=== PATIENT | male | born 1980 | race Hispanic/Latino ===

== ENCOUNTER → 2019-09-25 08:46 | Outpatient (CLI) | payer OTHER, SELFPAY ==
--- NOTE | 2019-09-25 08:48 | DI.MRI.S_ITS ---
PROCEDURE: MR LUMBAR SPINE WO CON INDICATIONS: Persistent and progressive lower back pain with radiculopath TECHNIQUE: Noncontrast sagittal T1 spin echo and T2 fast echo, sagittal STIR, axial T1 and T2 fast spin echo through the lumbar spine. In cases with scoliosis, additional coronal T2 fast spin echo may be performed. COMPARISON: None. FINDINGS: Image quality: Excellent. Alignment and Curvature: There is normal bony alignment. Bone Marrow: Marrow is of normal overall signal. No acute vertebral body compression fractures. Spinal Cord: Conus medullaris terminates at the L1 level. Visualized cord demonstrates normal signal and size. Paraspinous Soft Tissues: No paravertebral masses. T12-L1: Normal appearance. L1-L2: Normal appearance. L2-L3: Normal appearance. L3-L4: Normal appearance. L4-L5: The disc height is well-preserved. Loss of disc signal is seen at this level. Mild to moderate disc bulge is seen. There is a focal annular fissure seen posteriorly. There is moderate right-sided and minimal left-sided neural foraminal narrowing seen. Mild central canal narrowing is seen. L5-S1: The disc height is well-preserved. Loss of disc signal is seen at this level. Moderate disc bulge is seen, with a mild central disc protrusion. Mild facet joint hypertrophy is seen. A there is at least moderate right-sided and moderate to severe left-sided neural foraminal narrowing seen. A degree of compression can be seen on L5 nerve roots, left than right. Moderate central canal narrowing is seen. IMPRESSION: Premature lower lumbar spine degenerative changes seen, including a degree of compression upon the exiting L5 nerve roots. Dictated by: Abilio Siddiqui M.D. on 09/25/2019 at 8:50 Approved by: Abilio Siddiqui M.D. on 09/25/2019 at 8:53
== END ==
PROVIDERS: PCP Family Medicine; Visit Provider Family Medicine
DX: M54.5 Low back pain (principal); M47.26 Other spondylosis with radiculopathy, lumbar region; G89.29 Other chronic pain
CPT/HCPCS: 72148

== ENCOUNTER → 2021-02-06 09:24 | Outpatient (CLI) | payer OTHER, SELFPAY ==
--- NOTE | 2021-02-06 09:25 | DI.RAD.S_ITS ---
PROCEDURE: XR LUMBAR SPINE MIN 4V INDICATIONS: BACK PAIN TECHNIQUE: 5 views of the lumbar spine were acquired, including bilateral oblique views. COMPARISON: None. FINDINGS: Bones: 5 nonrib-bearing vertebrae are present. There is normal bony alignment. No vertebral body compression fractures. Mild degenerative endplate changes are noted at L5-S1 level. No suspicious bony lesions. Soft tissues: Overlying bowel gas pattern is normal. No suspicious soft tissue calcifications. Oblique images: No pars defects. IMPRESSION: Mild degenerative endplate changes seen at L5-S1 level. No compression fracture or spondylolisthesis. No gross pars defects. Dictated by: Lorenzo Lorenzo M.D. on 02/06/2021 at 10:36 Approved by: Lorenzo Lorenzo M.D. on 02/06/2021 at 10:36
== END ==
PROVIDERS: PCP Family Medicine; Referring Provider Physical Medicine & Rehabilitation; Visit Provider Physical Medicine & Rehabilitation
DX: M47.817 Spondylosis without myelopathy or radiculopathy, lumbosacral region (principal); M54.9 Dorsalgia, unspecified; G89.29 Other chronic pain
CPT/HCPCS: 72110

== ENCOUNTER → 2021-02-14 08:22 | Outpatient (CLI) | payer OTHER, SELFPAY ==
[2021-02-14 13:11] LABS: COVID19 -Nasal RAPID Negative (Negative)
== END ==
PROVIDERS: PCP Family Medicine; Visit Provider Physical Medicine & Rehabilitation
DX: Z20.822 Contact with and (suspected) exposure to COVID-19 (principal)
CPT/HCPCS: 87635; C9803

== ENCOUNTER 2021-02-16 15:28 | Outpatient (CLI) | payer OTHER, SELFPAY ==
[2021-02-16] VITALS (8 sets, daily range): BP systolic 122–147; BP diastolic 69–97; PULSE 50–64; RESP 11–18; TEMP 36.8; O2SAT 96–100
[2021-02-16] MEDS: MIDAZOLAM 5 MG/5 ML VIAL IV (16:12)
[2021-02-16] MEDS: fentaNYL 100 MCG/2 ML INJ 50 MCG IV (16:12)
[2021-02-16] MEDS: IOPAMIDOL 15 ML VIAL 3 ML INJ (16:16)
[2021-02-16] MEDS: BUPIVACAINE 0.25% (PF) VIAL 2 ML INJ (16:16)
[2021-02-16] MEDS: DEXAMETHASONE 10 MG/ML VIAL 20 MG INJ (16:17)
[2021-02-16] MEDS: BETAMETHASONE 30 MG/5 ML MDV 6 MG INJ (16:17)
--- NOTE | 2021-02-16 16:27 | P.PCN_ITS ---
Date/Time/Diagnoses Date of procedure: 02/16/21 Time of procedure: 16:27 Pre-procedure diagnosis: 1. HNP WITH RADICULAR FEATURES, 2. MULTILEVEL CENTRAL STENOSIS, Post-procedure diagnosis: same Procedure Notes Procedure: 1. FLUOROSCOPICALLY GUIDED CONTRAST CONTROLLED INTERLAMINAR EPIDURAL STEROID INJECTION - L5/S1 Indications: Raad is referred by Dr. Cameron for treatment of HNP with L>R LE symptoms. Physician: Santana Campos Total Fluoroscopy time (seconds): 7 Total sedation minutes: 11 Complications: none Procedure in detail & Post-procedure care: FINDINGS Multilevel Central Spinal Stenosis with Nerve Root Compression DESCRIPTION OF PROCEDURE Fluoroscopically guided, contrast-controlled L5/S1 translaminar epidural steroid injection. Following review of allergy and review of potential side effects and complications, including, but not necessarily limited to, infection, allergic reaction, local tissue breakdown, temporary as well as permanent nerve injury, paralysis, stroke and possible , the patient indicated that the patient understood and agreed to proceed. An informed consent document was signed by the patient, witnessed by a nurse, and placed in the patient's chart. Additionally, other treatment options including modalities, medications, and physical therapy were reviewed with the patient. After review of previous anaesthesic history and IV conscious sedation the patient was deemed safe to proceed with today?s procedure with IV conscious sedation as ASA class II designation. Safety time-out was performed to confirm patient ID, procedure to be performed and site of procedure. IV sedation was accomplished with a combination of 2mg of Versed and 50mcg of Fentanyl administered by the RN after DO order, titrated to patient comfort during the course of the procedure while the patient remained responsive to all verbal commands. In the prone position, following sterile prep and drape of the lumbar region, the L5/S1 translaminar space was identified fluoroscopically. The skin was anesthetized via a 25-gauge, 1.5-inch needle with 1% lidocaine solution. At this point, a 22-gauge short bevel spinal needle was atraumatically introduced and advanced under fluoroscopic guidance into the region of the L5/S1 translaminar space. Depth was confirmed on lateral view. Radiological data, including multiple fluoroscopic views of the lumbar spine, reveal a spinal needle at the L5/S1 translaminar space. Lateral views then show placement of the needle in the epidural space. Subsequent views show contrast material flowing superiorly and inferiorly in the epidural space. No vascular or intrathecal uptake is observed. At this point, using loss of resistance technique with saline and air, the epidural space was entered. This was confirmed following negative aspiration with injection of approximately 1.5cc of Isovue 200, showing excellent epidural flow without vascular or intrathecal uptake. At this point, 1 cc of 1% l idocaine solution combined with 3cc or 20mg of dexamethasone and 6mg of betamethasone was injected without incident. The patent tolerated the procedure without signs of symptoms of complications pr ior to transfer to the recovery area for further monitoring. The patient was then transferred to the recovery area where they were observed for an appropriate period of time after the injection. The patient reported a VAS score of 6 prior to the procedure and a post-procedure VAS of 0. POST OP INSTRUCTIONS The patient was provided a Pain Log to continue to record their response to the target-specific procedure prior to follow-up visit with their referring physician. Additionally, specific post-injection care instructions and a contact number to our office were provided if concerns arise regarding possible complications associated with the procedure are suspected.
--- NOTE | 2021-02-16 16:36 | DI.RAD.S_ITS ---
PROCEDURE: PAIN L INTERLAMINAR/CAUDAL INJ INDICATIONS: SPONDYLOSIS COMPARISON: [facility], CR, XR LUMBAR SPINE MIN 4V, 02/06/2021, 9:23. FINDINGS: Fluoroscopic spot filming was performed to verify placement of a spinal needle at the L5-S1 level, as labeled on the films. Appropriate location of the needle tip was confirmed by injection of iodinated contrast. IMPRESSION: No significant intraprocedural abnormality. Dictated by: Abilio Siddiqui M.D. on 02/16/2021 at 15:44 Approved by: Abilio Siddiqui M.D. on 02/16/2021 at 15:44
== END 2021-02-16 16:50 | disposition home or self-care (01) ==
PROVIDERS: PCP Family Medicine; Referring Provider Physical Medicine & Rehabilitation; Visit Provider Physical Medicine & Rehabilitation
DX: M51.17 Intervertebral disc disorders with radiculopathy, lumbosacral region (principal); M48.07 Spinal stenosis, lumbosacral region
CPT/HCPCS: 62323; 99152; J0702; J1100; J2250; J3010

== ENCOUNTER → 2021-05-01 08:27 | Outpatient (CLI) | payer OTHER, SELFPAY ==
[2021-05-01 13:01] LABS: COVID19 -Nasal RAPID Negative (Negative)
== END ==
PROVIDERS: PCP Family Medicine; Visit Provider Physical Medicine & Rehabilitation
DX: Z20.822 Contact with and (suspected) exposure to COVID-19 (principal)
CPT/HCPCS: 87635; C9803

== ENCOUNTER 2021-05-02 09:49 | Outpatient (CLI) | payer OTHER, SELFPAY ==
[2021-05-02] VITALS (9 sets, daily range): BP systolic 122–151; BP diastolic 65–104; PULSE 50–72; RESP 8–719; TEMP 36.8; O2SAT 97–100
--- NOTE | 2021-05-02 09:50 | DI.RAD.S_ITS ---
PROCEDURE: PAIN L/S FACET INJ/BLK 1ST ATA COMPARISON: [facility], XA, PAIN L INTERLAMINAR/CAUDAL INJ, 02/16/2021, 16:18. INDICATIONS: SPONDYLOSIS FINDINGS: Fluoroscopic spot filming was performed to verify placement of spinal needles at the L4-L5 level and the L5-S1 level on both sides, as labeled on the films. Appropriate location of the needle tips was confirmed by injection of iodinated contrast. IMPRESSION: Intraprocedural examination within normal limits. Dictated by: Abilio Siddiqui M.D. on 05/02/2021 at 10:02 Approved by: Abilio Siddiqui M.D. on 05/02/2021 at 10:02
[2021-05-02] MEDS: fentaNYL 100 MCG/2 ML INJ 50 MCG IV (10:28)
[2021-05-02] MEDS: MIDAZOLAM 5 MG/5 ML VIAL IV (10:28)
[2021-05-02] MEDS: IOPAMIDOL 15 ML VIAL 3 ML INJ (10:31)
[2021-05-02] MEDS: BUPIVACAINE 0.5% (PF) VIAL 5 ML INJ (10:32)
[2021-05-02] MEDS: LIDOCAINE 1% 20 ML 10 ML INJ (10:32)
[2021-05-02] MEDS: BETAMETHASONE 30 MG/5 ML MDV 12 MG INJ (10:33)
--- NOTE | 2021-05-02 10:46 | P.PCN_ITS ---
Date/Time/Diagnoses Date of procedure: 05/02/21 Time of procedure: 10:46 Pre-procedure diagnosis: 1. FACET ARTHROPATHY 2. AXIAL LBP 3. MULTILEVEL DDD Post-procedure diagnosis: same Procedure Notes Procedure: 1. FLUOROSCOPICALLY GUIDED CONTRAST CONTROLLED FACET JOINT INJECTIONS BILATERAL L4/5, L5/S1 Indications: Michael is referred by Dr. Cameron for treatment of Axial LBP Physician: Santana Campos Total Fluoroscopy time (seconds): 16 Total sedation minutes: 12 Complications: none Procedure in detail & Post-procedure care: FINDINGS Multilevel Facet Arthropathy with Clinically significant axial LBP DESCRIPTION OF PROCEDURE Fluoroscopically guided, contrast-controlled bilateral L4/5, L5/S1 facet joint injections. Following review of allergy and review of potential side effects and complications, including, but not necessarily limited to, infection, allergic reaction, local tissue breakdown, stroke, temporary or permanent nerve injury, paralysis, and possible , the patient indicated that the patient understood and agreed to proceed. An informed consent document was signed by the patient, witnessed by a nurse, and placed in the patient's chart. Additionally, other treatment options including medications, modalities, and physical therapy were reviewed with the patient. After review of previous anaesthesic history and IV conscious sedation the patient was deemed safe to proceed with today?s procedure with IV conscious sedation as ASA class II designation. Safety time-out was performed to confirm patient ID, procedure to be performed and site of procedure. IV sedation was accomplished with a combination of 2mg of Versed and 50mcg of Fentanyl was administered by the RN after DO order, titrated to patient comfort during the course of the procedure while the patient remained responsive to all verbal commands In the prone position, following sterile prep and drape of the lumbar region, the posterior aspect of the L4/5, L5/S1 facet joints were identified fluoroscopically. The skin was anesthetized via a 25-gauge 1.5inch needle with 1% lidocaine solution into the corresponding facet joints. At this point, a 22- gauge 3.5-inch spinal needle was atraumatically introduced and advanced under fluoroscopic guidance into the corresponding facet joints. Following negative aspiration, injections of approximately 0.2cc of Isovue 200 confirmed int erarticular placement without vascular uptake. The identical procedure was then performed at the L4/5, L5/S1 facet joints on the left. Radiological data, including multiple fluoroscopic views of the lumbosacral spine, reveal a spinal needle at the L4/5, L5/S1 facet joints bilaterally. Subsequent views show flow of contrast material both superiorly and inferiorly within the joint space without vascular or intrathecal uptake. At this point, a total of 0.5cc including a mixture of 0.25cc Marcaine and 0.25cc betamethasone was injected without complication into each of the corresponding facet joints. The patient tolerated the procedure well without signs or symptoms of complications prior to transfer to the recovery area continued monitoring without incident. The patient was then transferred to the recovery area where they were observed for an appropriate period of time after the injection. The patient reported a VAS score of 7 prior to the procedure and a post- procedure VAS of 0. POST OP INSTRUCTIONS The patient was provided a Pain Log to continue to record their response to the target-specific procedure prior to follow-up visit with their referring physician. Additionally, specific post-injection care instructions and a contact number to our office were provided if concerns arise regarding possible complications associated with the procedure are suspected.
== END 2021-05-02 11:05 | disposition home or self-care (01) ==
PROVIDERS: PCP Family Medicine; Referring Provider Physical Medicine & Rehabilitation; Visit Provider Physical Medicine & Rehabilitation
DX: M47.816 Spondylosis without myelopathy or radiculopathy, lumbar region (principal); M47.817 Spondylosis without myelopathy or radiculopathy, lumbosacral region; M51.36 Other intervertebral disc degeneration, lumbar region; M51.37 Other intervertebral disc degeneration, lumbosacral region; M54.5 Low back pain
CPT/HCPCS: 64493; 64494; 99152; J0702; J2250; J3010

== ENCOUNTER → 2022-02-09 16:11 | Outpatient (CLI) | payer OTHER, SELFPAY ==
--- NOTE | 2022-02-09 16:13 | DI.RAD.S_ITS ---
PROCEDURE: XR LUMBAR SPINE 2-3V INDICATIONS: Lumbar pain TECHNIQUE: 2 views of the lumbar spine were acquired. COMPARISON: [facility], , XR LUMBAR SPINE MIN 4V, 02/06/2021, 9:23. FINDINGS: Bones: 5 [id number] vertebrae are present. There is normal bony alignment. No vertebral body compression fractures. No suspicious bony lesions. Mild disc space narrowing at the L5-S1 level with mild degenerative endplate changes. There is minimal multilevel facet hypertrophy. Soft tissues: Overlying bowel gas pattern is normal. No suspicious soft tissue calcifications. IMPRESSION: No acute osseous abnormality. Mild degenerative changes at the L5-S1 level did not appear significantly changed. Dictated by: Jim Harden M.D. on 02/09/2022 at 17:03 Approved by: Jim Harden M.D. on 02/09/2022 at 17:04
== END ==
PROVIDERS: PCP Family Medicine; Referring Provider Nurse Practitioner Family; Visit Provider Nurse Practitioner Family
DX: M47.27 Other spondylosis with radiculopathy, lumbosacral region
CPT/HCPCS: 72100

== ENCOUNTER 2022-06-14 12:48 | Outpatient (CLI) | payer OTHER, SELFPAY ==
[2022-06-14] VITALS (9 sets, daily range): BP systolic 125–145; BP diastolic 77–91; PULSE 55–72; RESP 12–23; TEMP 36.5; O2SAT 98–100
--- NOTE | 2022-06-14 12:49 | DI.RAD.S_ITS ---
PROCEDURE: PAIN L/S FACET INJ/BLK 1ST ATA COMPARISON: [facility], XA, PAIN L/S FACET INJ/BLK 1ST ATA, 05/02/2021, 10:32. INDICATIONS: SPONDYLOSIS FINDINGS: Needle placement in the right L4, L5, and S1 position, labeled on the films. IMPRESSION: Fluoroscopic spot images were performed for needle placement at L4, L5, and S1. This is labeled on the film. Dictated by: Alfa Sexton M.D. on 06/14/2022 at 16:28 Approved by: Alfa Sexton M.D. on 06/14/2022 at 16:28
[2022-06-14] MEDS: MIDAZOLAM 2 MG/2 ML VIAL 4 MG IV (13:27)
[2022-06-14] MEDS: IOPAMIDOL 15 ML VIAL 3 ML INJ (13:28)
[2022-06-14] MEDS: BUPIVACAINE 0.5% (PF) VIAL 5 ML INJ (13:28)
[2022-06-14] MEDS: LIDOCAINE 1% (PF) 5 ML INJ (13:30)
--- NOTE | 2022-06-14 13:42 | PM.PROC.IR.1 ---
Date/Time/Diagnoses Date of procedure: 06/14/22 Time of procedure: 13:42 Pre-procedure diagnosis: 1. FACET ARTHROPATHY Post-procedure diagnosis: same Procedure Notes Procedure: 1. BILATERAL- L4, L5 and S1 DIAGNOSTIC MB BLOCKS with LA Anesthetic Indications: Michael is referred by Dr. Cameron for treatment of Bilateral Axial LBP. Physician: Santana Campos Total Fluoroscopy time (seconds): 11 Total sedation minutes: 13 Complications: none Procedure in detail & Post-procedure care: DESCRIPTION OF PROCEDURE Fluoroscopically guided, contrast-controlled bilateral L4, L5 and S1 medial branch blocks with 0.5cc of 0.5% Marcaine. Following review of allergy and review of potential side effects and complications, including, but not necessarily limited to, infection, allergic reaction, local tissue breakdown, nerve injury, paralysis, stroke and possible , the patient indicated that the patient understood and agreed to proceed. An informed consent document was signed by the patient, witnessed by a nurse, and placed in the patient's chart. After review of previous anaesthesic history and IV conscious sedation the patient was deemed safe to proceed with today's procedure with IV conscious sedation as ASA class II designation. Safety time-out was performed to confirm patient ID, procedure to be performed and site of procedure. IV sedation was accomplished with a combination of 4mg of Versed was administered by the RN after DO order, titrated to patient comfort during the course of the procedure while the patient remained responsive to all verbal commands In the prone position, following sterile prep and drape of the lumbar region, the right L4, L5 and S1 anatomical location of the medial branch of the dorsal ramus was identified fluoroscopically. Subsequently an anesthetic skin wheal using 1% lidocaine solution was initiated at each of the anatomical spots. Subsequently then a 22-gauge 3.5-inch spinal needle was atraumatically introduced and advanced under fluoroscopic guidance at each of the corresponding sites at the right L4, L5 and S1 MB. After negative aspiration, 0.2cc of Isovue 200 was injected, confirming placement without vascular or intrathecal uptake. Subsequently then 0.5cc of 0.5% Marcaine solution was injected at each of the corresponding sites at the right L4, L5 and S1 medial branch locations. The identical procedure was replicated on the left. The patient tolerated the procedure well without signs or symptoms of complications prior to transfer to the recovery area continued monitoring without incident. Post-procedure, the patient was monitored initiating provocative activities to measure the amount of relief from block of the facetogenic pain. The patient reported a VAS of 7 prior to the procedure and a post-procedure VAS of 1. It has been a pleasure to assist in the diagnostic and therapeutic care of your patient. POST OP INSTRUCTIONS The patient was provided with a Pain Log to complete over the next several hours and subsequent days prior to the patient's follow up with the ordering physician. If the patient has instrument repairer helper relief to the solution applied, then they may be a candidate for medial branch rhizotomy. The patient is aware, was provided, once again, with a Pain Log and will follow up with the referring physician for review and clinical correlation
== END 2022-06-14 14:05 | disposition home or self-care (01) ==
PROVIDERS: PCP Family Medicine; Referring Provider Physical Medicine & Rehabilitation; Visit Provider Physical Medicine & Rehabilitation
DX: M47.816 Spondylosis without myelopathy or radiculopathy, lumbar region (principal); M47.817 Spondylosis without myelopathy or radiculopathy, lumbosacral region
CPT/HCPCS: 64493; 64494; 99152; J2250

== ENCOUNTER 2022-09-25 07:34 | Outpatient (CLI) | payer OTHER, SELFPAY ==
[2022-09-25] VITALS (11 sets, daily range): BP systolic 118–138; BP diastolic 68–84; PULSE 66–76; RESP 12–18; TEMP 36.7; O2SAT 99–100
--- NOTE | 2022-09-25 07:37 | DI.RAD.S_ITS ---
PROCEDURE: PAIN L/S MED/LAT N RFA BILAT INDICATIONS: SPONDYLOSIS COMPARISON: [facility], , PAIN L/S FACET INJ/BLK 1ST ATA, 06/14/2022, 13:27. FINDINGS: Fluoroscopic spot filming was performed to verify placement of spinal needles on both sides at the L4, L5, and S1 levels, as labeled on the films. IMPRESSION: Images during rhizotomy within normal limits. Dictated by: Abilio Siddiqui M.D. on 09/25/2022 at 10:49 Approved by: Abilio Siddiqui M.D. on 09/25/2022 at 10:49
[2022-09-25] MEDS: MIDAZOLAM 2 MG/2 ML VIAL 4 MG IV (08:35)
[2022-09-25] MEDS: LIDOCAINE 1% (PF) 5 ML INJ (08:44)
[2022-09-25] MEDS: BUPIVACAINE 0.5% MDV 5 ML SUBCUT (08:44)
--- NOTE | 2022-09-25 09:18 | P.PCN_ITS ---
Date/Time/Diagnoses Date of procedure: 09/25/22 Time of procedure: 09:18 Pre-procedure diagnosis: 1. RECALCITRANT FACET ARTHROPATHY Post-procedure diagnosis: same Procedure Notes Procedure: 1. BILATERAL L4 AND L5 MEDIAL BRANCH RADIOFREQUENCY NEUROTOMY AND S1 DORSAL RAMUS BRANCH RADIOFREQUENCY NEUROTOMY Indications: Michael is referred by Dr. Cameron for treatment of facet arthropathy. Physician: Santana Campos Total Fluoroscopy time (seconds): 23 Total sedation minutes: 41 Complications: none Procedure in detail & Post-procedure care: DESCRIPTION OF PROCEDURE Bilateral L4 and L5 medial branch radiofrequency neurotomy and bilateral S1 dorsal ramus radiofrequency neurotomy under fluoroscopy with conscious sedation. The patient is well known to this clinic having undergone previous facet injections with good but temporary relief. The patient has experienced appropriate, concordant relief with previous facet and median branch blocks but the patient's pain has been recalcitrant to further conservative measures. Therefore, based upon the patient's relief and persistent symptoms, the patient is considered an appropriate candidate for facet rhizotomy. All of the patient's questions regarding the risks versus benefits of the procedure, including, but not limited to, bleeding, infection, temporary as well as lasting nerve injury, paralysis, stroke, and , as well treatment alternatives were answered to satisfaction. After obtaining informed consent, denial of pertinent drug allergies, as well as being made aware of the potential risks of bleeding, infection, spinal cord trauma, paralysis, temporary and permanent nerve damage, seizure, stroke, and possible , the patient was brought to the fluoroscopy suite and positioned prone on the fluoroscopy table. The lumbar region was prepped with Betadine and covered with a fenestrated drape in the usual sterile fashion. Appropriate monitors applied including pulse oximeter, pulse, and blood pressure for regular monitoring throughout the procedure. After review of previous anaesthesic history and IV conscious sedation the patient was deemed safe to proceed with today's procedure with IV conscious sedation as ASA class II designation. Safety time-out was performed to confirm patient ID, procedure to be performed and site of procedure. IV sedation was accomplished with a combination of 4mg of Versed administered by the RN after DO order, titrated to patient comfort during the course of the procedure while the patient remained responsive to all verbal commands. After local infiltration using 1% lidocaine, under fluoroscopic guidance, a 10- cm RF insulated needle with a 10-mm active tip was positioned parallel to the junction of the right sacral ala and the superior articulating process where the S1 dorsal ramus resides. Needle placement was confirmed with motor stimulation of .5v on the right which produced local stimulation without radicular component. The stimulation was then increased to 2v with, once again, only local multifidus stimulation without radicular component. The needle was then removed and the identical procedure was performed along the length of the right L5 medial branch with motor stimulation at .7v on the right. The identical procedure was once again performed along the length of the right L4 medial branch with motor stimulation of .5v on the right. The medial branches were then anesthetised with 0.5% Marcaine. This was then followed by two discreet lesions performed at 80 degrees Celsius for 90 seconds each. The identical procedure was repeated on the left. The patient tolerated the procedure well without signs or symptoms of complications prior to transfer to the recovery area continued monitoring without incident. The patient was then transferred to the recovery area where they were observed for an appropriate period of time after the injection. The patient reported a VAS score of 9 prior to the procedure and a post-procedure VAS of 0. POST OP INSTRUCTIONS The patient was provided a Pain Log to continue to record the patient's response to the target-specific procedure prior to the patient's follow-up visit with the referring physician. Additionally, specific post-injection care instructions and a contact number to our office were provided if concerns arise regarding possible complications associated with the procedure are suspected.
== END 2022-09-25 09:26 | disposition home or self-care (01) ==
PROVIDERS: PCP Family Medicine; Referring Provider Physical Medicine & Rehabilitation; Visit Provider Physical Medicine & Rehabilitation
DX: M47.816 Spondylosis without myelopathy or radiculopathy, lumbar region (principal); M47.817 Spondylosis without myelopathy or radiculopathy, lumbosacral region
CPT/HCPCS: 64635; 64636; 99152; 99153; J2250

== ENCOUNTER → 2023-05-01 10:46 | Outpatient (CLI) | payer OTHER, SELFPAY ==
--- NOTE | 2023-05-01 10:47 | DI.RAD.S_ITS ---
PROCEDURE: XR TOE RT MIN 2V INDICATIONS: 2nd toe injury TECHNIQUE: 3 views of the 2nd toe(s) acquired. COMPARISON: None. FINDINGS: Bones: There is dorsal dislocation at 2nd DIP joint. No definite fracture is seen. No suspicious bony lesions. Soft tissues: No suspicious soft tissue densities. IMPRESSION: Posterior dislocation at 2nd DIP joint. No acute fracture is noted. Dictated by: Lorenzo Lorenzo M.D. on 05/01/2023 at 12:14 Approved by: Lorenzo Lorenzo M.D. on 05/01/2023 at 12:14
== END ==
PROVIDERS: PCP Family Medicine; Referring Provider Family Medicine; Visit Provider Family Medicine
DX: S93.114A Dislocation of interphalangeal joint of right lesser toe(s), initial encounter (principal); X58.XXXA Exposure to other specified factors, initial encounter
CPT/HCPCS: 73660

== ENCOUNTER 2023-05-01 13:26 | Emergency (ER) | payer OTHER, SELFPAY ==
[2023-05-01 13:31] VITALS: BP 146/81; PULSE 58; RESP 16; TEMP 36.9; O2SAT 100; BMI 28.7
--- NOTE | 2023-05-01 14:57 | DI.RAD.S_ITS ---
PROCEDURE: XR TOE RT MIN 2V INDICATIONS: post-reduction right 2nd toe TECHNIQUE: 3 views of the 2nd toe(s) acquired. COMPARISON: [facility], , XR TOE RT MIN 2V, 05/01/2023, 10:53. FINDINGS: Bones: No fractures or dislocations. Status post reduction of 2nd toe dislocation. No suspicious bony lesions. Soft tissues: No suspicious soft tissue densities. IMPRESSION: Status post reduction of left 2nd toe at the distal interphalangeal joint. No acute fractures are seen. Dictated by: Zach Garcia M.D. on 05/01/2023 at 15:19 Approved by: Zach Garcia M.D. on 05/01/2023 at 15:20
--- NOTE | 2023-05-01 14:58 | ED.LOWEXIN ---
HPI - Extremity Injury (Lower) <Selena Whittington PA-C - Last Filed: 05/01/23 15:13> General Chief Complaint: Extremity Injury, Lower Stated Complaint: sent by wic/rt toe injury Time Seen by Provider: 05/01/23 13:40 Source: family Mode of arrival: Ambulatory History of Present Illness HPI Narrative: Patient referred from walk-in clinic for right 2nd toe DIP dislocation.? He reports about 3 days ago he dropped a 4 x 4 on this toe.? It has been continuing to be painful, swelling.? There is an indentation on dorsal side of distal right toe.? No open wound areas.? He is able to ambulate without assistance.? Patient states he has been using ibuprofen and icing, elevating.? Patient is alert, oriented and comfortable. Related Data Home Medications Medication Instructions Recorded Confirmed multivitamin 1 tab PO DAILY 09/18/19 09/05/22 Previous Rx's Medication Instructions Recorded tramadol 50 mg tablet 50 mg PO BID PRN pain #42 tabs 09/05/22 Allergies Allergy/AdvReac Type Severity Reaction Status Date / Time No Known Drug Allergies Allergy Verified 09/05/22 08:05 Review of Systems <Selena Whittington PA-C - Last Filed: 05/01/23 15:13> Review of Systems ROS Unobtainable: All systems reviewed & are unremarkable except as noted in HPI and below Patient History <Selena Whittington PA-C - Last Filed: 05/01/23 15:13> Medical History Chronic back pain (~2009) Facet arthropathy, lumbar Fractures (~2009) GERD (gastroesophageal reflux disease) Headache Herniated nucleus pulposus, L5-S1 Lumbar radiculopathy Migraines Resolved chronic cough Surgical History Anesthesia Broken leg (~2009) Social History Smoking Status: Former smoker second hand exposure: Yes alcohol intake: current (1-2 drinks weekly ) substance use type: does not use Smoking Status: Former smoker alcohol intake frequency: holidays/special occasions only Substance Use Type: does not use Exam <BRANDON Anderson Last Filed: 05/01/23 15:13> Narrative Exam Narrative: GENERAL: 42 year old patient appears stated age. Well-developed patient, in mild distress. NEURO: AOx3. HEAD: Atraumatic. Normocephalic. EYES: Pupils equal round and reactive. Extraocular motions intact. No scleral icterus. No injection or drainage. ENT: Nose without bleeding or purulent drainage. RESPIRATORY: No distress EXTREMITIES: Right 2nd toe generalized edema and obvious deformation. Sensation intact, distal skin warm and pink. SKIN: No rash or erythema of visible areas Initial Vital Signs Initial Vital Signs: Vital Signs Temperature 98.5 F 05/01/23 13:31 Pulse Rate 58 L 05/01/23 13:31 Respiratory Rate 16 05/01/23 13:31 Blood Pressure 146/81 H 05/01/23 13:31 Pulse Oximetry 100 05/01/23 13:31 Oxygen Delivery Method Room Air 05/01/23 13:31 <DO Yordan George Last Filed: 05/01/23 16:09> Initial Vital Signs Initial Vital Signs: Vital Signs Temperature 98.5 F 05/01/23 13:31 Pulse Rate 58 L 05/01/23 13:31 Respiratory Rate 16 05/01/23 13:31 Blood Pressure 146/81 H 05/01/23 13:31 Pulse Oximetry 100 05/01/23 13:31 Oxygen Delivery Method Room Air 05/01/23 13:31 Procedures <BRANDON Anderson Last Filed: 05/01/23 15:13> Orthopedic Joint Reduction Joint #1: Time of procedure: 14:20 Time Out Performed: Yes Side: right Joint Reduction Location: toe Analgesia: nerve block Local Anesthesia: lidocaine 2% Amount of anesthesic used (mL): 2 Technique used: traction/counter-traction Post-reduction neuro exam: intact Post-reduction vascular: intact Post Reduction X-Ray Obtained: Yes Post Reduction X-Ray Results: not reduced <DO Yordan George Last Filed: 05/01/23 16:09> Nerve Block Nerve Block 1: Local Anesthetic: lidocaine 1% Amount of anesthesia used (mL): 5 Side: right Nerve Blocks: digital Procedure Successful: Yes Patient Tolerated Procedure: Well Course <BRANDON Anderson Last Filed: 05/01/23 15:13> Orders Ordered: ED Orders 05/01/23 14:57 XR toe RT min 2V Stat Discontinued Medications Lidocaine HCl (Lidocaine 2% Inj Mdv 20ml) 5 ml SUBCUT NOW ONE Stop: 05/01/23 13:41 Last Admin: 05/01/23 15:10 Dose: Not Given Documented By: KASSY Reevaluation(s) Reevaluation #1: 0004: Re-injected with 2% lidocaine, 2mL. Dr. Noguera attempted reduction, will check xray Vital Signs Vital signs: Vital Signs - 8 hr 05/01/23 13:31 Temperature 98.5 F Pulse Rate 58 L Respiratory Rate 16 Blood Pressure 146/81 H Pulse Oximetry 100 Oxygen Delivery Method Room Air <Darrick Noguera DO - Last Filed: 05/01/23 16:09> Orders Ordered: ED Orders 05/01/23 14:57 XR toe RT min 2V Stat Discontinued Medications Lidocaine HCl (Lidocaine 2% Inj Mdv 20ml) 5 ml SUBCUT NOW ONE Stop: 05/01/23 13:41 Last Admin: 05/01/23 15:10 Dose: Not Given Documented By: KASSY Vital Signs Vital signs: Vital Signs - 8 hr 05/01/23 13:31 Temperature 98.5 F Pulse Rate 58 L Respiratory Rate 16 Blood Pressure 146/81 H Pulse Oximetry 100 Oxygen Delivery Method Room Air MDM - Extremity Injury (Lower) <Selena Whittington PA-C - Last Filed: 05/01/23 15:13> [facility] Narrative Medical decision making narrative: Multiple etiologies for patient's symptoms considered including, but not limited to: Dislocation, fracture, hematoma. Joint reduction successful on 2nd attempt. Distal toe is pink and warm. Sensation altered due to lidocaine injection. Patient declines keisha tape, advised to wear stiff-soled shoes. Patient's symptoms improved over duration of stay with above-stated therapies. Findings and discharge diagnosis discussed with patient/family followed by verbalization of understanding Return precautions discussed with patient/family whom verbalize understanding of diagnosis and plan <Darrick Noguera DO - Last Filed: 05/01/23 16:09> [facility] Narrative Medical decision making narrative: Multiple etiologies for patient's symptoms considered including, but not limited to: Dislocation, fracture, hematoma. Joint reduction successful on 2nd attempt. Distal toe is pink and warm. Sensation altered due to lidocaine injection. Patient declines keisha tape, advised to wear stiff-soled shoes. Patient's symptoms improved over duration of stay with above-stated therapies. Findings and discharge diagnosis discussed with patient/family followed by verbalization of understanding Return precautions discussed with patient/family whom verbalize understanding of diagnosis and plan Dr noguera: I did evaluate the patient with the APC. Patient does have a dislocated D IP joint of his right 2nd toe. I digital block was performed. We were able to reduce this dislocation with traction. This was confirmed with a postprocedure x-ray. Patient does have somewhat of a hammertoe however he states this is normally what his toe looks like. Will discharge patient home with return precautions. Discharge Plan Departure Patient Disposition: Home Clinical Impression: Closed dislocation of toe of right foot Instructions: Dislocated Toe Activity Restrictions/Additional Instructions: *You have been diagnosed with right toe dislocation and reduction. You can keisha tape her toe to the 3rd toe to provide support or just wear stiff-soled shoes. You are advised to use R: rest. take it easy and listen to your body! I: ice. apply ice for 20 minutes every 2 hours while awake. Do not put ice directly on the skin. C: compression. Gentle compression with thi wrap or splint will decrease pain and swelling. E: elevation. Keep extremity elevated above the heart whenever possible. Use tylenol or ibuprofen for inflammation and pain. It is generally safe to take up to 3-4grams of tylenol in 24 hours, or 2400mg of ibuprofen in 24 hours. If you have questions about dosing or whether these medications are safe for you, please ask a healthcare provider. *Please follow up with your primary care provider in 2-3 days, call for an appointment. Let them know you were seen in the Emergency Department and that we ask that you be seen in follow up. We will electronically transmit a record of today's note if your PCP is in our system *If you do not have a primary care provider please contact the [facility] Resource line at [phone]. They will ask some questions about your medical history and help get you set up with a doctor in the community. *Return to Emergency Department if you should have any new, worsening or concerning symptoms, such as [fever greater than 101 F, shaking chills, worsening pain, persistent vomiting or other concerning symptoms]. Prescriptions: No Action multivitamin Tablet 1 tab PO DAILY tramadol 50 mg tablet 50 mg PO BID PRN (Reason: pain) Qty: 42 1RF Referrals: Nir Cameron DO [Primary Care Provider] - Stand Alone Forms: Patient Portal/API, Work Release Note
[2023-05-01] MEDS: LIDOCAINE 2% INJ SDV 5ML 5 ML (15:10)
== END 2023-05-01 15:15 | disposition home or self-care (01) ==
PROVIDERS: Emergency Provider Physician Assistant; PCP Family Medicine
DX: S93.114A Dislocation of interphalangeal joint of right lesser toe(s), initial encounter (principal); W20.8XXA Other cause of strike by thrown, projected or falling object, initial encounter; X58.XXXA Exposure to other specified factors, initial encounter
CPT/HCPCS: 28660; 64450; 73660; 99283

== ENCOUNTER → 2023-07-03 15:47 | Outpatient (CLI) | payer OTHER, SELFPAY ==
--- NOTE | 2023-07-03 15:49 | DI.RAD.S_ITS ---
PROCEDURE: XR SHOULDER LT MIN 2V INDICATIONS: left shoulder pain, eval for arthritis TECHNIQUE: 3 views of the shoulder were acquired. COMPARISON: None. FINDINGS: Bones: No fractures or dislocations. Mild lucency at the distal clavicle at the acromioclavicular joint consistent with degenerative change. No suspicious bony lesions. Visualized ribs appear intact. Soft tissues: No suspicious soft tissue calcifications. IMPRESSION: Degenerative changes at the acromioclavicular joint. No acute abnormality. Dictated by: Femi Bishop M.D. on 07/03/2023 at 16:49 Approved by: Femi Bishop M.D. on 07/03/2023 at 16:51
== END ==
PROVIDERS: PCP Family Medicine; Referring Provider Physician Assistant; Visit Provider Physician Assistant
DX: M25.512 Pain in left shoulder (principal)
CPT/HCPCS: 73030

== ENCOUNTER 2025-01-28 10:34 | Emergency (ER) | payer OTHER, SELFPAY ==
[2025-01-28 10:50] VITALS: BP 172/108; PULSE 63; RESP 18; TEMP 36.9; O2SAT 100; BMI 25.0
--- NOTE | 2025-01-28 11:17 | ED.NEUROSD ---
HPI - Neuro Symptoms/Deficit General Chief Complaint: Neuro Symptoms/Deficit Stated Complaint: possible sinus infection, sent from [facility] Time Seen by Provider: 01/28/25 10:44 Source: patient Mode of arrival: Wheelchair History of Present Illness HPI Narrative: 44-year-old gentleman with a history of chronic back pain, migraines who presents with 3 days of slowly resolving bilateral lower extremity weakness. on the while he was out jogging he experienced acute onset of lightheadedness with some word-finding difficulty and noted that was more difficult to walk requiring specific attention to his foot placement. remainder of that day he was unsteady but no actual falls, no specific vertigo. additionally complains of sinus symptoms over the last couple of months, no fevers no allergies that was his initial presenting complaint to the walk-in clinic. Currently on Claritin. 2 weeks ago had some pain swelling and tenderness around the canine and premolars upper left side. he did notice some purulent discharge, he has been using salt water washes, nose having pain radiating up into his right restorationist On Anticoagulants: No Related Data Allergies Allergy/AdvReac Type Severity Reaction Status Date / Time No Known Drug Allergies Allergy Verified 01/28/25 10:53 Review of Systems Hematologic/Lymphatic On Anticoagulants: No Patient History Medical History Chronic back pain (~2009) Facet arthropathy, lumbar Fractures (~2009) GERD (gastroesophageal reflux disease) Headache Herniated nucleus pulposus, L5-S1 Lumbar radiculopathy Migraines Resolved chronic cough Surgical History Anesthesia Broken leg (~2009) Social History Smoking Status: Former smoker second hand exposure: Yes alcohol intake: current (1-2 drinks weekly ) substance use type: does not use Smoking Status: Former smoker alcohol intake frequency: holidays/special occasions only Exam Initial Vital Signs Initial Vital Signs: Vital Signs Temperature 98.4 F 01/28/25 10:50 Pulse Rate 63 01/28/25 10:50 Respiratory Rate 18 01/28/25 10:50 Blood Pressure 172/108 H 01/28/25 10:50 Pulse Oximetry 100 01/28/25 10:50 Oxygen Delivery Method Room Air 01/28/25 10:50 General: Healthy appearing, in no acute distress. Able to give a complete and coherent history. Well-nourished well-developed HEENT: Moist mucous membranes, normal sclera with reactive pupils, Respiratory: Lungs are clear to auscultation, no wheezing no rales no rhonchi. Full and symmetrical air movement Cardiac: Regular rate and rhythm no murmurs no bruits Abdomen: Soft, nontender, no rebound or guarding, no flank pain Neurologic: Grossly neurologically intact with no obvious asymmetries or abnormalities, NIH score is 0 Extremities: No trauma, well perfused Psych: Cooperative, appropriate insight and affect Course Orders Ordered: ED Orders 01/28/25 11:21 CT head/brain wo con Stat CT sinus screen wo con Stat 01/28/25 11:28 Complete Blood Count AUTO DIFF Stat Comprehensive Metabolic Panel Stat Vital Signs Vital signs: Vital Signs - 8 hr 01/28/25 10:50 01/28/25 11:31 01/28/25 11:31 Temperature 98.4 F Pulse Rate 63 59 L Respiratory Rate 18 Blood Pressure 172/108 H 141/86 H Pulse Oximetry 100 97 Oxygen Delivery Method Room Air MDM - Neuro Symptoms/Deficit Lab Data 01/28/25 11:28 01/28/25 11:28 Labs: Lab Results 01/28/25 Range/Units 11:28 WBC 3.4 L (4.5-11.0) X10^3/uL RBC 4.94 (4.5-5.9) X10^6/uL Hgb 14.7 (13.5-17.5) g/dL Hct 43.7 (41-53) % MCV 88.5 (80-100) fL MCH 29.8 (26-34) PG MCHC 33.6 (30-36) % RDW 13.4 (11.6-14.8) % Plt Count 240 (150-400) X10^3/uL Neut % (Auto) 51.9 (50-75) % Lymph % (Auto) 36.1 (25-40) % [place] % (Auto) 8.2 (3-14) % Eos % (Auto) 2.8 (2-4) % Baso % (Auto) 1.0 (0-2) % Neut # (Auto) 1800 (6747-7225) /uL Lymph # (Auto) 1200 (9662-7781) /uL [place] # (Auto) 300 (0-900) /uL Eos # (Auto) 100 (0-450) /uL Baso # (Auto) 0 (0-100) /uL Sodium 138 (137-145) mmol/L Potassium 4.5 (3.4-5.1) mmol/L Chloride 100 (98-107) mmol/L Carbon Dioxide 30 (22-32) mmol/L BUN 21 H (9-20) mg/dL Creatinine 1.30 H (0.66-1.25) mg/dL Estimated GFR > 60 (>60) mL/min BUN/Creatinine Ratio 16.2 (6-22) Glucose 99 (70-99) mg/dL Calcium 9.6 (8.4-10.2) mg/dL Total Bilirubin 0.9 (0.2-1.3) mg/dL AST 35 (17-59) IU/L ALT 23 (<50) IU/L Alkaline Phosphatase 57 (38-126) U/L Total Protein 8.0 (6.3-8.2) g/dL Albumin 4.9 (3.5-5.0) g/dL Globulin 3.1 (1.7-4.1) g/dL Albumin/Globulin Ratio 1.6 (1.0-2.8) Discharge Plan Departure Patient Disposition: Home Clinical Impression: Ataxia, Congestion of nasal sinus Activity Restrictions/Additional Instructions: thank you for coming into I do not have an explanation for the bilateral leg weakness that you had last Saturday. I also do not have a good explanation for the gait instability that you are noticing. I can not tell you that you are head CT looks very reassuring, there was no tumors, masses or blood to explain the findings. I am seeing no evidence of acute stroke. With your complaints of a sinus infection, you do not actually have an infection and do not need antibiotics. You describe fairly significant seasonal allergy symptoms I would continue with the Claritin. You said that you have tried Flonase before and it was not helpful. 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 antibiotics are not going to be helpful with this. If you want additional follow up on this I would recommend schedule appointment with your with a [facility], Dr. Elian Nguyen here in [place]. Their office phone number is [phone]. You do need to reestablish care with your primary care physician. If you are continuing to have the gait instability and difficulty walking you do need further workup. They may suggest an MRI of your brain or consultation with a neurologist. If you find that any of your symptoms are getting acutely worse please return to the emergency department Referrals: Nir Cameron, [Primary Care Provider] - Stand Alone Forms: Patient Portal/API/Survey
--- NOTE | 2025-01-28 11:21 | DI.CT.S_ITS ---
PROCEDURE: CT SINUS SCREEN WO CON INDICATIONS: chronic sinus pain with detnal infection upper L teeth TECHNIQUE: Noncontrast 3.0 mm axial images acquired from the frontal sinuses to the mid-sella, with coronal and sagittal reformats. For radiation dose reduction, the following was used: automated exposure control, adjustment of mA and/or kV according to patient size. COMPARISON: None. FINDINGS: Image quality: Excellent. Maxillary Sinuses: No bony remodeling or destruction. Sinuses are clear. Ethmoid Air Cells: No bony remodeling or destruction. Sinuses are clear. Sphenoid Sinuses: No bony remodeling or destruction. Sinuses are clear. Frontal Sinuses: No bony remodeling or destruction. Sinuses are clear. Ostiomeatal Complexes: Ostiomeatal complexes are patent. No Mathew cells. Miscellaneous: Visualized intra-orbital contents are normal. No sarah bullosa or paradoxical turbinate curvature. 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 IMPRESSION: 1. No acute or chronic sinusitis identified. 2. A combination of left for nasal septal deviation and an osteophytic bar results in narrowing of the left nasal passage. Dictated by: Frantz Andres M.D. on 01/28/2025 at 12:16 Approved by: Frantz Andres M.D. on 01/28/2025 at 12:18
--- NOTE | 2025-01-28 11:21 | DI.CT.S_ITS ---
PROCEDURE: CT HEAD/BRAIN WO CON INDICATIONS: ataxia, exressive aphasia TECHNIQUE: Noncontrast 4.5 mm thick angled axial sections acquired from the foramen magnum to the vertex, with coronal and sagittal reformats. For radiation dose reduction, the following was used: automated exposure control, adjustment of mA and/or kV according to patient size. COMPARISON: None. FINDINGS: Image quality: Diagnostic. CSF spaces: Basal cisterns are patent. No extra-axial fluid collections. The ventricles are symmetric in size and shape. Brain: No intracranial bleeds or mass effect. There is cerebral volume loss, with resultant ventricular and sulcal prominence. There are periventricular and deep white matter chronic small vessel ischemic changes. There is intracranial internal carotid artery atherosclerosis. Skull and face: Calvarium and visualized facial bones appear intact, without suspicious lesions. Sinuses: Visualized sinuses and mastoids are clear. IMPRESSION: No acute intracranial pathology. Comment: If suspect acute stroke, recommend brain MRI. Dictated by: Frantz Andres M.D. on 01/28/2025 at 12:18 Approved by: Frantz Andres M.D. on 01/28/2025 at 12:20
[2025-01-28 11:31] VITALS: BP 141/86; PULSE 59; O2SAT 97
[2025-01-28 11:40] LABS: Add Manual Diff / Slide Review NO; Basophils Absolute Auto 0 /uL (0-100); Eosinophils Absolute Auto 100 /uL (0-450); Eosinophils Percent Auto 2.8 % (2-4); Hematocrit 43.7 % (41-53); Hemoglobin 14.7 g/dL (13.5-17.5); Lymphocytes Absolute Auto 1200 /uL (1100-4500); Lymphocytes Percent Auto 36.1 % (25-40); Mean Corpuscular HGB Conc 33.6 % (30-36); Mean Corpuscular Hemoglobin 29.8 PG (26-34); Mean Corpuscular Volume 88.5 fL (80-100); Monocytes Absolute Auto 300 /uL (0-900); Monocytes Percent Auto 8.2 % (3-14); Neutrophils Absolute Auto 1800 /uL (1500-7000); Neutrophils Percent Auto 51.9 % (50-75); Platelet Count 240 X10^3/uL (150-400); Red Blood Cell Count 4.94 X10^6/uL (4.5-5.9); Red Cell Distribution Width 13.4 % (11.6-14.8); White Blood Cell Count 3.4 X10^3/uL (4.5-11.0)
[2025-01-28 11:52] LABS: Alanine Aminotransferase 23 IU/L (<50); Albumin 4.9 g/dL (3.5-5.0); Albumin Globulin Ratio 1.6 (1.0-2.8); Alkaline Phosphatase 57 U/L (38-126); Aspartate Aminotransferase 35 IU/L (17-59); BUN Creatinine Ratio 16.2 (6-22); Bilirubin Total 0.9 mg/dL (0.2-1.3); Blood Urea Nitrogen 21 mg/dL (9-20); Calcium 9.6 mg/dL (8.4-10.2); Carbon Dioxide 30 mmol/L (22-32); Chloride 100 mmol/L (98-107); Estimated Glomerular Filt Rate > 60 mL/min (>60); Globulin 3.1 g/dL (1.7-4.1); Glucose 99 mg/dL (70-99); HEMOLYSIS < 15 (0-50); Potassium 4.5 mmol/L (3.4-5.1); Sodium 138 mmol/L (137-145)
[2025-01-28 12:00] VITALS: BP 136/84; PULSE 65; RESP 16; O2SAT 100
[2025-01-28 12:30] VITALS: BP 130/84; PULSE 58; RESP 19; O2SAT 100
--- NOTE | 2025-01-28 12:31 | PC.NURSE ---
Patient reports having sinus infection symptoms and possible tooth abscess. Reported draining tooth abscess when poked his gums with a tooth pick. Reports that on Saturday he had difficulty walking and finding words when he went to work. Spent the day like that.
[2025-01-28 13:00] VITALS: BP 127/82; PULSE 50; RESP 12; O2SAT 100
[2025-01-28 13:38] VITALS: BP 127/82; PULSE 58; RESP 19; O2SAT 100
== END 2025-01-28 13:40 | disposition home or self-care (01) ==
PROVIDERS: Emergency Provider Emergency Medicine; PCP Family Medicine
DX: R27.0 Ataxia, unspecified (principal); R09.81 Nasal congestion
CPT/HCPCS: 70450; 70486; 80053; 85025; 99281; 99284